=== PATIENT | male | born 1995 | race African-American/Black ===

== ENCOUNTER 2022-07-13 09:14 | Inpatient (IN) | payer OTHER ==
[~2022-07-13] VITALS: Ht 182.9 cm; Wt 73.0 kg
--- NOTE | 2022-07-13 09:30 | NUR ---
RECIEVED PATIENT DIRECT TRANSFER FROM [facility]. PATIENT WAS TRANSPORTED ON GURNEY, AWAKE ALERT AND BREATHING. PATIENT APPEARS PALE AND CAPILLARY REFIL TIME AT 3 SECONDS. PATIENT IVF CONTINUED AND AWAITING MD ORDERS FOR PATIENT CARE.
[2022-07-13] MEDS ORDERED: HYDROcodone/APAP 5/325 MG 1 TAB TAB PO PRN (10:35)
[2022-07-13] MEDS ORDERED: ONDANSETRON 4 MG/2 ML VIAL IVP PRN (10:35)
[2022-07-13] MEDS ORDERED: ACETAMINOPHEN 325 MG TAB PO PRN (10:35)
[2022-07-13] MEDS ORDERED: POTASSIUM CHLORIDE 10 MEQ TABER PO PRN (10:35)
[2022-07-13] MEDS ORDERED: MORPHINE SULFATE 4 MG/ML SYR IVP PRN (10:35)
[2022-07-13] MEDS: NACL 0.9% 1,000 ML IV SCH ×2 (10:35→23:09)
[2022-07-13] MEDS ORDERED: LORazepam 1 MG TAB PO PRN (10:35)
[2022-07-13] MEDS ORDERED: MAGNESIUM OXIDE 400 MG TAB PO PRN (10:35)
[2022-07-13 12:00] VITALS: BP 101/67; PULSE 72; PULSE 83; RESP 17; TEMP 97.1; O2SAT 100
[2022-07-13] MEDS ORDERED: fentaNYL citrate 0.05 MG/ML VIAL ONE (12:00)
[2022-07-13] MEDS ORDERED: MIDAZOLAM 2 MG/2 ML VIAL ONE (12:00)
--- NOTE | 2022-07-13 12:00 | NUR ---
PATIENT SEEN BY GI CONSULT. PICKED UP BY OR TEAM FOR ENDOSCOPY.
[2022-07-13] MEDS ORDERED: MIDAZOLAM 2 MG/2 ML VIAL IVP ONE (13:30)
--- NOTE | 2022-07-13 14:16 | NUR ---
PATIENT HAS BEEN SCREENED AND CATEGORIZED LOW NUTRITION RISK. PATIENT WILL BE SEEN WITHIN 7 DAYS OF ADMISSION. 07/20/[address]
[2022-07-13 16:00] VITALS: BP 100/60; PULSE 71; PULSE 77; RESP 17; TEMP 98.4; O2SAT 100
--- NOTE | 2022-07-13 18:00 | NUR ---
PATIENT AND PATIENT'S FAMILY ASKED FOR UPDATES. INFORMED THEM OF CURRENT ORDERS AND PLANS. THEY VERBALIZED UNDERSTANDING AND ADMIT TO BEING FRUSTRATED FOR LONG DELAYS. RE EXPLAINED TO THE PATIENT WHAT HAPPENED DURING THE PROCEDURE AND WHY HE IS WHERE HE IS. SHO VERBALIZED UNDERSTANDING.
--- NOTE | 2022-07-13 19:52 | NUR ---
ENDORSED PATIETN TO PM NURSE FOR CONTINUITY OF CARE
[2022-07-13 20:00] VITALS: BP 121/54; PULSE 92; PULSE 93; RESP 18; TEMP 98.3; O2SAT 100; O2SAT 96
--- NOTE | 2022-07-13 20:00 | NUR ---
ASSESMENT COMPLETED PLAN OF CARE REVIEWED DENIES PAIN AT THIS TIME ENDORSES HE FELS ANXIOUS ATIVAN WILL BE GIVEN ORDERED CALL LIGHT IN REACH WILL CONTINUE TO MONITOR AND ASSESS
[2022-07-13] MEDS: PANTOPRAZOLE 40 MG INJ VIAL IVP SCH (20:49)
[2022-07-14] VITALS: BP 100/58; PULSE 88; RESP 18; TEMP 97.8; O2SAT 100
[2022-07-14 04:00] VITALS: BP 102/60; PULSE 71; PULSE 82; RESP 18; TEMP 98.4; O2SAT 100
[2022-07-14 05:45] LABS: BASOPHILS % (AUTO) 0.4 % (0.0-2.0); EOSINOPHILS # (AUTO) 0.1 K/uL (0-0.4); EOSINOPHILS % (AUTO) 0.8 % (0.0-4.0); LYMPHOCYTES # (AUTO) 1.6 K/uL (2.0-11.5); LYMPHOCYTES % (AUTO) 23.8 % (20.5-51.1); MEAN CORPUSCULAR HEMOGLOBIN 29 pg (27-31); MEAN CORPUSCULAR HGB CONC 34 g/dL (33-37); MEAN CORPUSCULAR VOLUME 85.7 fL (80-94); MONOCYTES # (AUTO) 0.5 K/uL (0.8-1.0); MONOCYTES % (AUTO) 7.7 % (1.7-9.3); NEUTROPHILS # (AUTO) 4.5 K/uL (1.8-7.7); NEUTROPHILS % (AUTO) 67.3 % (42.2-75.2); PLATELET COUNT (AUTO) 120 K/uL (140-450); RED BLOOD CELL COUNT(AUTO) 2.17 MIL/uL (4.20-6.10); RED CELL DISTRIBUTION WIDTH 12.9 % (11.6-13.7); WHITE BLOOD COUNT (AUTO) 6.6 K/uL (4.8-10.8)
[2022-07-14 06:09] LABS: ALBUMIN 2.6 g/dL (3.4-5.0); ANION GAP 8.2 (8-16); CARBON DIOXIDE 28.7 mmol/L (21-32); POTASSIUM 3.9 mmol/L (3.5-5.1); TOTAL BILIRUBIN 0.6 mg/dL (0.0-1.0)
[2022-07-14 06:29] LABS: PROTHROMBIN TIME 12.1 secs (10.8-13.4)
--- NOTE | 2022-07-14 06:49 | NUR ---
PT REMAINS NPO NO SIGNIFICANT CHANGES
--- NOTE | 2022-07-14 06:54 | NUR ---
WILL ENDORSE CARE TO ONCOMING SHIFT
--- NOTE | 2022-07-14 07:15 | NUR ---
RECEIVED PATIENT FROM PM NURSE FOR CONTINUATION OF CARE. PATIENT SEEN ASLEEP ON BED WITH NORMAL RISE AND FALL OF CHEST. CARE PLAN REVIEWED. PATIENT CARE CONTINUED.
[2022-07-14 07:19] LABS: HEMATOCRIT 18.6 % (36-52); HEMOGLOBIN 6.4 g/dL (12.0-18.0)
[2022-07-14 08:00] VITALS: BP 118/58; PULSE 70; PULSE 99; RESP 18; TEMP 97.4; O2SAT 98
[2022-07-14] MEDS: PANTOPRAZOLE 40 MG INJ VIAL IVP SCH (09:58)
[2022-07-14] MEDS: NACL 0.9% 1,000 ML IV SCH (11:35)
[2022-07-14 12:00] VITALS: BP 105/63; PULSE 88; PULSE 91; RESP 18; TEMP 96.8; O2SAT 98
[2022-07-14 17:51] VITALS: BP 105/63; PULSE 91; RESP 18; TEMP 96.8
--- NOTE | 2022-07-30 14:26 | NUR ---
[place] DR [place] [id number] [facility] [id number]. SPOKE WITH АННА WHO WAS ABLE TO INFORM ME THAT PATENT HAD TO CALL HIM SELF TO SCHEDULE A NEW APPOINTMENT DUE TO CANCELING 1ST APPOINTMENT ON 07/20/2022. CALLED PATIENT AND INFORMED HIM OF THE ABOVE INFORMATION.
== END 2022-07-14 18:30 | disposition home or self-care (01) | DRG 241 ==
LOC: MTU 09:30
PROVIDERS: ADMIT Student in an Organized Health Care Education/Training Program; ATTEND Student in an Organized Health Care Education/Training Program
PROC: 0DJ08ZZ Inspection of Upper Intestinal Tract, Via Natural or Artificial Opening Endoscopic (ICD-10-PCS; principal; 2022-07-13 12:00)
PROC: 30233N1 Transfusion of Nonautologous Red Blood Cells into Peripheral Vein, Percutaneous Approach (ICD-10-PCS; 2022-07-14)
DX: K26.4 Chronic or unspecified duodenal ulcer with hemorrhage (principal); F12.10 Cannabis abuse, uncomplicated; R00.0 Tachycardia, unspecified
CPT/HCPCS: 36415; 80053; 85025; 85610; 86886; 86900; 86901; 86920; 87081; 93005; C9113; J0696; J2250; J3010; J7060; P9016

== ENCOUNTER 2022-07-20 10:45 | Day surgery (SDC) | payer OTHER ==
[~2022-07-20] VITALS: Ht 185.4 cm; Wt 79.4 kg
[2022-07-20] MEDS ORDERED: fentaNYL citrate 0.05 MG/ML VIAL ONE (11:05)
[2022-07-20] MEDS ORDERED: PROPOFOL 200 MG/20 ML VIAL IV ONE ×2 (11:06→12:40)
[2022-07-20] MEDS ORDERED: SUCCINYLCHOLINE CHLORIDE 200 MG/10 ML VIAL IVP ONE ×2 (11:06→12:40)
[2022-07-20] MEDS ORDERED: diphenhydrAMINE 50 MG/ML VIAL IVP PRN (11:35)
[2022-07-20] MEDS ORDERED: HYDROmorphone 1 MG/ML AMP IVP PRN (11:35)
[2022-07-20] MEDS ORDERED: LACTATED RINGERS 1,000 ML IV SCH (11:35)
[2022-07-20] MEDS ORDERED: MEPERIDINE 25 MG/ML SYR IVP PRN (11:35)
[2022-07-20] MEDS ORDERED: ONDANSETRON 4 MG/2 ML VIAL IVP PRN (11:35)
[2022-07-20 12:01] LABS: ALBUMIN 3.8 g/dL (3.4-5.0); ANION GAP 12.6 (8-16); CARBON DIOXIDE 28.4 mmol/L (21-32); TOTAL BILIRUBIN 0.3 mg/dL (0.0-1.0)
[2022-07-20 12:16] LABS: BASOPHILS % (AUTO) 0.6 % (0.0-2.0); EOSINOPHILS % (AUTO) 1.1 % (0.0-4.0); HEMATOCRIT 28.2 % (36-52); HEMOGLOBIN 9.3 g/dL (12.0-18.0); LYMPHOCYTES # (AUTO) 1.1 K/uL (2.0-11.5); MEAN CORPUSCULAR HEMOGLOBIN 29 pg (27-31); MEAN CORPUSCULAR HGB CONC 33 g/dL (33-37); MEAN CORPUSCULAR VOLUME 87.7 fL (80-94); MONOCYTES # (AUTO) 0.4 K/uL (0.8-1.0); MONOCYTES % (AUTO) 10.7 % (1.7-9.3); NEUTROPHILS # (AUTO) 2.6 K/uL (1.8-7.7); NEUTROPHILS % (AUTO) 61.6 % (42.2-75.2); PLATELET COUNT (AUTO) 283 K/uL (140-450); RED BLOOD CELL COUNT(AUTO) 3.21 MIL/uL (4.20-6.10); RED CELL DISTRIBUTION WIDTH 14.8 % (11.6-13.7); WHITE BLOOD COUNT (AUTO) 4.2 K/uL (4.8-10.8)
[2022-07-20] MEDS ORDERED: METOCLOPRAMIDE 10 MG/2 ML INJ VIAL ONE (12:40)
[2022-07-20] MEDS ORDERED: SEVOFLURANE 250 ML BTL INH ONE (12:40)
[2022-07-20] MEDS ORDERED: ONDANSETRON 4 MG/2 ML VIAL ONE (12:54)
== END 2022-07-20 14:10 | disposition home or self-care (01) ==
LOC: MMU 10:45 → MDS 10:45
PROVIDERS: ATTEND Internal Medicine Gastroenterology
DX: K92.1 Melena (principal)
CPT/HCPCS: 36415; 43239; 80053; 85025; 86677; J0330; J2405; J2704; J2765; J3010